=== PATIENT | female | born 1950 | race Caucasian/White ===

== ENCOUNTER 2017-12-17 11:45 | Outpatient (CLI) | payer MEDICARE ==
--- NOTE | 2017-12-17 13:54 | RAD ---
CHEST TWO VIEWS: History: J18.1 Cough. Comparison: None. FINDINGS: There is a low grade dextroscoliosis. Mild lung hyperinflation. No focal confluent airspace consolida tion, pneumothorax or effusion. Right upper quadrant surgical clips are present in the abdomen. IMPRESSION: 1. No acute intrathoracic abnormality. 2. Mild lung hyperinflation suggesting obstructive pulmonary disease. POS: OFF
== END 2017-12-17 11:46 | disposition home or self-care (01) ==
LOC: SCSRAD 11:45
PROVIDERS: ATTEND Family Medicine
DX: J18.9 Pneumonia, unspecified organism (principal); R91.8 Other nonspecific abnormal finding of lung field
CPT/HCPCS: 71046

== ENCOUNTER 2018-01-21 10:27 | Outpatient (CLI) | payer MEDICARE | END 2018-01-21 10:28 | disposition home or self-care (01) | LOC: BICMAMMO 10:27 | PROVIDERS: ATTEND Family Medicine | DX: Z12.31 Encounter for screening mammogram for malignant neoplasm of breast (principal) | CPT/HCPCS: 77063; 77067 ==

== ENCOUNTER 2018-02-02 16:57 | Outpatient (CLI) | payer MEDICARE ==
--- NOTE | 2018-02-02 20:44 | RAD ---
CHEST PA AND LATERAL: 02/02/18 HISTORY: 67-year-old female with history of cough with worsening. COMPARISON: 12/24/17. FINDINGS: Mild biapical pleural thickening. Minimal stable linear parenchymal changes bilaterally, evidence for mild chronic change. No confluent pneumonia, overt edema, or pleural effusion. IMPRESSION: Mild stable chronic changes. No other acute intrathoracic disease. No evidence for pneumonia or acute edema. POS: [facility]
== END 2018-02-02 16:58 | disposition home or self-care (01) ==
LOC: SCSRAD 16:57
PROVIDERS: ATTEND Family Medicine
DX: R05 Cough (principal)
CPT/HCPCS: 71046

== ENCOUNTER 2019-01-25 09:52 | Outpatient (CLI) | payer MEDICARE ==
--- NOTE | 2019-01-25 10:22 | MMO ---
Bilateral MAMMO Bilat Screen [id number]. CLINICAL HISTORY: Patient is 68 years old and is seen for screening. The patient has no family history of breast cancer. The patient has no personal history of cancer. VIEWS: The views performed were: bilateral craniocaudal with tomosynthesis and bilateral mediolateral oblique with tomosynthesis. FILMS COMPARED: The present examination has been compared to prior imaging studies performed at [facility] on 08/29/2014, 09/04/2015, 09/04/2016 and 01/21/2018. This study has been interpreted with the assistance of computer-aided detection. MAMMOGRAM FINDINGS: The breasts are heterogeneously dense, which could obscure a lesion on mammography. There are no suspicious masses, suspicious calcifications, or new areas of architectural distortion. IMPRESSION: THERE IS NO MAMMOGRAPHIC EVIDENCE OF MALIGNANCY. A ROUTINE FOLLOW-UP MAMMOGRAM IN 1 YEAR IS RECOMMENDED. THE RESULTS OF THIS EXAM WERE SENT TO THE PATIENT. ACR BI-RADS Category 1 - Negative MAMMOGRAPHY NOTE: 1. A negative mammogram report should not delay a biopsy if a dominant of clinically suspicious mass is present. 2. Approximately 10% to 15% of breast cancers are not detected by mammography. 3. Adenosis and dense breasts may obscure an underlying neoplasm. Reported by: KEVON BYRNE MD Electonically Signed: [id number]
== END 2019-01-25 09:53 | disposition home or self-care (01) ==
LOC: BICMAMMO 09:52
PROVIDERS: ATTEND Family Medicine
DX: Z12.31 Encounter for screening mammogram for malignant neoplasm of breast (principal)
CPT/HCPCS: 77063; 77067

== ENCOUNTER 2022-04-24 10:51 | Outpatient (CLI) | payer MEDICARE | END 2022-04-24 10:52 | disposition home or self-care (01) | LOC: BICMAMMO 10:51 | PROVIDERS: ATTEND Family Medicine | DX: Z12.31 Encounter for screening mammogram for malignant neoplasm of breast (principal) | CPT/HCPCS: 77063; 77067 ==